=== PATIENT | female | born 1990 | race Caucasian/White ===

== ENCOUNTER 2024-09-10 22:11 | Outpatient (CLI) | payer OTHER ==
[~2024-09-10] VITALS: Ht 165.1 cm; Wt 87.3 kg
--- NOTE | 2024-09-10 22:25 | NUR ---
G5L0 at 37 weeks and 5 days arrives to unit with complaint of mild abdominal pain after a fall around 1700. Pt reports tripping over curb and falling onto her hands and knees and is unaware if she landed on her abdomen. Pt reports starting to feel a little bit more discomfort this evening. Denies vaginal bleeding, LOF, or contractions. Reports good movement. US and toco explained and applied. Admission assessment started. Vitals obtained. No SVE due to no contractions.
[2024-09-10 23:00] VITALS: BP 122/73; PULSE 98; TEMP 98
--- NOTE | 2024-09-10 23:00 | NUR ---
RN at bedside through contractions. Pt unaware and denies any pain.
[2024-09-10] MEDS ORDERED: PROTONIX20 MG PO (23:37)
[2024-09-10] MEDS ORDERED: PRENATAL TABLET PO (23:37)
[2024-09-10] MEDS ORDERED: LR 1,000 ML IV PRN (23:45)
--- NOTE | 2024-09-11 00:15 | NUR ---
Pt denies pain. No vaginal bleeding. Reports normal movement. Discharge instructions reviewed with patient and spouse, verbalized understanding. Pt seen ambulating off unit in stable condition.
== END 2024-09-11 00:15 | disposition home or self-care (01) ==
LOC: LDRO 22:11
DX: O9A.213 Injury, poisoning and certain other consequences of external causes complicating pregnancy, third trimester (principal); Z3A.37 37 weeks gestation of pregnancy

== ENCOUNTER 2024-09-21 21:08 | Outpatient (CLI) | payer OTHER ==
[~2024-09-21] VITALS: Ht 165.1 cm; Wt 87.3 kg
[~2024-09-21 21:08] MED LIST: PRENATAL TABLET PO; PROTONIX20 MG PO
[2024-09-21 21:30] VITALS: BP 119/76; PULSE 109; TEMP 98.9
[2024-09-21] MEDS ORDERED: LR 1,000 ML IV PRN (21:45)
[2024-09-21 21:53] VITALS: BP 125/70; PULSE 103; TEMP 98.2
== END 2024-09-21 22:02 | disposition home or self-care (01) ==
LOC: LDRO 21:08
DX: Z34.93 Encounter for supervision of normal pregnancy, unspecified, third trimester (principal); Z3A.39 39 weeks gestation of pregnancy

== ENCOUNTER 2024-09-23 02:02 | Inpatient (IN) | payer OTHER ==
[2024-09-23] VITALS (38 sets, daily range): BP systolic 105–152; BP diastolic 50–93; PULSE 80–148; TEMP 97.5–100.6
[~2024-09-23] VITALS: Ht 165.1 cm; Wt 89.5 kg
--- NOTE | 2024-09-23 02:00 | NUR ---
0208- PT PRESENTS TO LDR COMPLAINING OF CONTRACTIONS, TO LR4 PER WHEELCHAIR, CHANGED INTO GOWN. 0215- EFM X2 APPLIED. PT DENIES LEAKING FLUID. STATES SHE HAS HAD SOME SPOTTING SINCE BEING CHECKED YESTERDAY. SHE STATES SHE HAS BEEN FEELING BABY MOVE BUT A LITTLE LESS THAN NORMAL. PLAN OF CARE FOR LABOR CHECK DISCUSSED AND QUESTIONS ANSWERED. PT AGREEABLE WITH PLAN AND GIVES CONSENT FOR VAGINAL EXAMS. 0225- SVE BY THIS NURSE / WITH BULGING BAG OF AHUJA PRESENT AND BLOODY SHOW NOTED ON GLOVE. PLAN OF CARE FOR POSSIBLE ADMISSION DISCUSSED. PT IS VERY UNCOMFORTABLE AT THIS TIME. SHE STATES SHE WOULD LIKE AN EPIDURAL IF THAT IS POSSIBLE. 0229- DR DUMAS CALLED AND UPDATED CHARTED. ORDERS FOR ADMISSION, GBS PROTOCOL AND EPIDURAL WHEN PT IS READY. 0230- PT WALKS OUT TO DESK AND STATES THE PT'S WATER HAS BROKEN, REASSURANCE PROVIDED. 0235- NURSE TO BEDSIDE. PUDDLE OF CLEAR FLUID NOTED ON FLOOR AND PT IS CONTINUING TO LEAK. PLAN OF CARE FOR ADMISSION DISCUSSED AND QUESTIONS ANSWERED. 0240- IV START TO LEFT FOREARM X2 STICKS. BLOOD DRAWN FOR LABS. LR INFUSING ORDERED. CHARMAINE ALREADY PRESENT ON UNIT AND WILL COME TO BEDSIDE FOR EPIDURAL WHEN HE IS AVAILABLE. 0253- PEN G INFUSING FOR GBS PROTOCOL ORDERED. 0254- CHARMAINE ER REGISTRAR AT BEDSIDE FOR EPIDURAL PLACEMENT. HE DISCUSSES RISKS AND BENEFITS AND OBTAINS INFORMED CONSENT. PT POSITIONED SITTING UP ON EDGE OF BED. 0300- PT SITTING UP AND STATES SHE IS FEELING PRESSURE. TILTED TO SIDE AND SVE PERFORMED BY THIS NURSE 100/0. PT THEN REPOSITIONED TO SITTING UP TO CONTINUE EPIDURAL PROCESS. 0303- EPIDURAL SINGLE SHOT. 0307- EPIDURAL PROCEDURE COMPLETE. PT TOLERATED WELL. PT POSITIONED IN LEFT LATERAL AND MONITORS ADJUSTED. 0315- NURSING ADMISSION HISTORY AND ASSESSMENTS COMPLETE. 0345- CONSENTS SIGNED. PT AND UNSURE ABOUT HEP B AND ERYTHROMYCIN OINTMENT FOR BABY. INFORMATION SHEETS PROVIDED AND THEY WILL DISCUSS.
[2024-09-23] MEDS ORDERED: LR 1,000 ML IV PRN (02:45)
[2024-09-23] MEDS ORDERED: LR 1,000 ML IV SCH (02:45)
[2024-09-23] MEDS ORDERED: LR & Oxytocin 500 ML IV SCH (02:45)
[2024-09-23] MEDS ORDERED: Penicillin G Potassium 5,000,000 UNITS in NS 100 ML IV ONE (02:45)
[2024-09-23] MEDS ORDERED: ROPivacaine PF 0.2% 200 ML IV ONE (02:55)
[2024-09-23 02:58] LABS: BASO % 0.2 % (0.0-2.0); GRAN # 11.1 K/mm3 (1.4-6.5); GRAN % 84.3 % (42.2-75.2); HEMOGLOBIN 12.1 g/dl (12.5-16.0); LYMPH % 7.8 % (20.0-51.0); MEAN CELL VOLUME 83 fl (80.0-100.0); MEAN CORPUSCULAR HEMOGLOBIN 28 pg (27-31); MEAN CORPUSCULAR HGB CONC 34 g/dl (33.0-37.0); MEAN PLATELET VOLUME 11.4 fl (7.4-10.4); MONO # 0.9 K/mm3 (0.1-0.6); PLATELET COUNT 201 K/mm3 (130-400); RED BLOOD COUNT 4.34 M/mm3 (4.10-5.30); REDCELL DISTRIBUTION WIDTH-CV 14.2 % (11.5-14.5)
[2024-09-23] MEDS ORDERED: Naloxone 0.4 MG/ML VIAL IV PRN ×2 (03:00→09:30)
[2024-09-23] MEDS ORDERED: Ondansetron 4 MG/2 ML VIAL IV PRN (03:00)
[2024-09-23] MEDS ORDERED: diphenhydrAMINE 25 MG CAP PO PRN (03:00)
[2024-09-23] MEDS ORDERED: LR 1,000 ML IV ONE (03:00)
[2024-09-23] MEDS ORDERED: ePHEDrine 50 MG/10 ML VIAL IV PRN (03:00)
[2024-09-23] MEDS ORDERED: LR 500 ML IV PRN (03:00)
[2024-09-23] MEDS ORDERED: diphenhydrAMINE 50 MG/ML 1 ML VIAL IV PRN (03:00)
[2024-09-23 03:05] LABS: HEMATOCRIT 35.9 % (37.0-47.0)
--- NOTE | 2024-09-23 04:15 | NUR ---
0415- MONITORS ADJUSTED. 0500- NURSE TO BEDSIDE. PT REPORTS SHE HAS BEEN ABLE TO REST SOME. PLAN OF CARE DISCUSSED AND QUESTIONS ANSWERED. 0505- CHINO CATHETER PLACED WITHOUT DIFFICULTY, DRAINING CLEAR URINE. SVE BY THIS NURSE /+1. PT REPOSITIONED FOR COMFORT.
--- NOTE | 2024-09-23 05:30 | NUR ---
0530- DR DUMAS AT [facility]. HE IS UPDATED ON PT CURRENT SVE OF /+1, PT IS COMFORTABLE WITH HER EPIDURAL. SHE HAS RECEIVED 1 DOSE OF PEN G SO FAR. HE REVIEWS STRIP AT THIS TIME. NO NEW ORDERS RECEIVED.
[2024-09-23] MEDS ORDERED: Penicillin G Potassium 2,500,000 UNITS in NS 100 ML IV SCH (06:37)
--- NOTE | 2024-09-23 07:20 | NUR ---
PATIENT PUSHING EFFORTS INITIATED, THE RN AT BEDSIDE MONITORING MATERNAL AND STATUS.
--- NOTE | 2024-09-23 07:24 | NUR ---
MECONIUM FLUID NOTED WHILE PUSHING. NURSERY RN AND BEAD WIRE TAPER NOTIFIED.
--- NOTE | 2024-09-23 07:24 | NUR ---
MECONIUM FLUID NOTED WHILE PUSHING. NURSERY RN, AND OUTPATIENT PHLEBOTOMIST NOTIFIED. [employer] PHOTOGRAPH ON UNIT AND NOTIFIED WELL.
--- NOTE | 2024-09-23 08:00 | NUR ---
THIS RN REMAINS AT BEDSIDE PUSHING WITH PATIENT. MATERNAL AND STATUS CONTINUE TO BE MONITORED
--- NOTE | 2024-09-23 08:19 | NUR ---
AT BEDSIDE. FHR TRACING REVIEWED. PLAN OF CARE UPDATED. PROVIDER PUSHING WITH PATIENT AT THIS TIME.
--- NOTE | 2024-09-23 08:24 | NUR ---
THIS RN AND REMAIN AT BEDSIDE PUSHING WITH PATIENT. DUE TO PRULENT DISCHARGE AND SLIGHTLY ELEVATED LAST ORAL TEMPERATRUE OF 99.7. ORDERS GIVEN BY PROVIDER FOR ANTIBIOTICS AMPCILLIN AND GENTAMYCIN
--- NOTE | 2024-09-23 08:24 | NUR ---
AMPICILLIN AND GENTAMYCIN ORDERS GIVEN PER DR. MILLER.
[2024-09-23] MEDS ORDERED: GENTAMICIN IV ONE (08:30)
[2024-09-23] MEDS ORDERED: NS IV ONE (08:30)
--- NOTE | 2024-09-23 08:33 | NUR ---
PROVIDER AT BEDSIDE. ORAL TEMPERATURE TAKEN AND FOUND TO BE 100.6. PROVIDER DIAGNOSES PATIENT WITH CHORIOAMNIOITIS.
--- NOTE | 2024-09-23 08:40 | NUR ---
0840 THIS RN AND PROVIDER AT BEDSIDE PUSHING WITH PATIENT. 0845 PRESENTING PART . PATIENT SETUP FOR DELIVERY. 0853 OF VIABLE FEMALE INFANT. MODERATE AMOUNT OF MECONIUM NOTED UPON DELIVERY. PLACED ON MOTHER'S ABDOMEN. CARE OF GIVEN TO NURSERY RN. 0858 OF PLACENTA. PITOCIN BOLUS STARTED AT 333ML/HR PER POLICY AND PROTOCOL. REPAIR OF PERINEAL LACERATION AND 2ND DEGREE VAGINAL LACERATION BY DR. MILLER. FUNDUS FIRM AND BLEEDING WNL.
[2024-09-23] MEDS ORDERED: Acetaminophen 500 MG TAB PO PRN (08:45)
--- NOTE | 2024-09-23 08:59 | NUR ---
PATIENT STRIAGHT CATHED BY . 25ML OUT.
[2024-09-23] MEDS ORDERED: Promethazine 50 MG/ML 1 ML VIAL IM ONE (09:15)
[2024-09-23] MEDS ORDERED: Sennosides/Docusate 8.6-50 MG TAB PO SCH (09:26)
[2024-09-23] MEDS ORDERED: Witch Hazel 50% Pads Bulk TUB TP PRN (09:30)
[2024-09-23] MEDS ORDERED: Mag/Al Hydrox/Simeth Susp 30 ML CUP PO PRN (09:30)
[2024-09-23] MEDS ORDERED: Loratadine 10 MG TAB PO PRN (09:30)
[2024-09-23] MEDS ORDERED: oxyCODONE 5 MG TAB PO PRN (09:30)
[2024-09-23] MEDS ORDERED: Measles/Mumps/Rubella Virus Vaccine Live w Diluent 0.5 ML VIAL SQ SCH (09:30)
[2024-09-23] MEDS ORDERED: Phenylephrine/Mineral Oil/Petrolatum 57 GM TUBE RC PRN (09:30)
[2024-09-23] MEDS ORDERED: Tdap Vaccine 0.5 ML SYRINGE IM SCH (09:30)
[2024-09-23] MEDS ORDERED: Magnes Hydrox (MOM) 80 MG/ML 30 ML CUP PO PRN (09:30)
[2024-09-23] MEDS ORDERED: Acetaminophen 500 MG TAB PO SCH (10:00)
[2024-09-23] MEDS ORDERED: Ibuprofen 600 MG TAB PO SCH (10:00)
--- NOTE | 2024-09-23 11:45 | NUR ---
PATIENT ASSISTED TO EDGE OF BED. EPIDURAL CATHETER REMOVED. PATIENT STANDY ASSISTED X1 RN TO BATHROOM. PATIENT ABLE TO VOID. PERICARE COMPLETED. NEW GOWN GIVEN TO PATIENT. PATIENT STANDBY ASSISTED TO NURSERY TO SEE INFANT. PATIENT ASSISTED TO SIT IN CHAIR NEAR RADIANT WARMER.
--- NOTE | 2024-09-23 18:15 | NUR ---
PATIENT CARE GIVEN TO RAMIRO RN
[2024-09-23] MEDS ORDERED: traZODone 50 MG TAB PO PRN (21:00)
[2024-09-24 05:19] LABS: BASO % 0.3 % (0.0-2.0); EOS # 0.1 K/mm3 (0.0-0.7); EOS % 0.7 % (0.0-4.0); GRAN # 8.9 K/mm3 (1.4-6.5); GRAN % 76.5 % (42.2-75.2); LYMPH # 1.3 K/mm3 (1.2-3.4); MEAN CELL VOLUME 83 fl (80.0-100.0); MEAN CORPUSCULAR HGB CONC 34 g/dl (33.0-37.0); MEAN PLATELET VOLUME 11.1 fl (7.4-10.4); MONO # 1.3 K/mm3 (0.1-0.6); MONO % 11.1 % (1.7-9.3); PLATELET COUNT 140 K/mm3 (130-400); RED BLOOD COUNT 3.42 M/mm3 (4.10-5.30); REDCELL DISTRIBUTION WIDTH-CV 14.5 % (11.5-14.5)
[2024-09-24 05:27] LABS: HEMATOCRIT 28.4 % (37.0-47.0); HEMOGLOBIN 9.5 g/dl (12.5-16.0); MEAN CORPUSCULAR HEMOGLOBIN 28 pg (27-31)
[2024-09-24 07:50] VITALS: BP 110/72; PULSE 72; TEMP 98.6
[2024-09-24] MEDS ORDERED: IBU600 MG PO (08:05)
[2024-09-24] MEDS ORDERED: BREASTPUMP MC (08:07)
--- NOTE | 2024-09-24 09:35 | NUR ---
Initial visit; Parents thanked Wool [employer]er for looking in on them and offering congratulations and God's blessings for the of their daughter. Wool [employer]er visited with them about names for their daughter and wished them well and offered a "thank you" [facility].
--- NOTE | 2024-09-24 12:02 | NUR ---
REPORT GIVEN TO PCR.HOLIDAY, PT VS STABLE, CARE ASSUMED OVER TO PCR.HOLIDAY
[2024-09-24 16:22] VITALS: BP 117/65; PULSE 87; TEMP 98.2
[2024-09-24 21:15] VITALS: BP 115/75; PULSE 102; TEMP 98.7
[2024-09-24] MEDS ORDERED: guaiFENesin Oral Soln 200 MG/10 ML UD PO PRN (22:15)
[2024-09-25 08:00] VITALS: BP 132/80; PULSE 98; TEMP 98.1
== END 2024-09-25 15:00 | disposition home or self-care (01) | DRG 805 ==
LOC: LDRO 02:02 → OB 02:29 → LDR 02:29 → OB 12:00
PROVIDERS: Obstetrics & Gynecology; ADMIT Obstetrics & Gynecology
PROC: 10E0XZZ Delivery of Products of Conception, External Approach (ICD-10-PCS; principal; 2024-09-23)
PROC: 0KQM0ZZ Repair Perineum Muscle, Open Approach (ICD-10-PCS; 2024-09-23)
DX: O99.824 Streptococcus B carrier state complicating childbirth (principal); O41.1230 Chorioamnionitis, third trimester, not applicable or unspecified; Z37.0 Single live birth; Z3A.39 39 weeks gestation of pregnancy; O70.1 Second degree perineal laceration during delivery; O77.0 Labor and delivery complicated by meconium in amniotic fluid
CPT/HCPCS: J0290; J1580; J2405; J2540; J2550; J2590; J2795; J7120